=== PATIENT | male | born 2000 | race Caucasian/White ===

== ENCOUNTER 2022-07-16 07:19 | Emergency (ER) | payer OTHER ==
[~2022-07-16] VITALS: Ht 193 cm; Wt 124.7 kg
[2022-07-16 07:58] LABS: BASO % 0.5 % (0.0-1.0); EOS % 0.5 % (1.0-4.0); HEMATOCRIT 42.6 % (42.0-52.0); LYMPH % 26.7 % (27.0-41.0); MEAN CORPUSCULAR HGB CONC 36.2 g/dl (33.0-37.0); MEAN PLATELET VOLUME 9.9 fl (9.6-12.3); MONO # 0.6 10*3/uL (0.1-1.0); MONO % 7.6 % (3.0-9.0); NEUT # 4.9 10*3/uL (2.3-7.9); NEUT % 64.3 % (47.0-73.0); PLATELET COUNT AUTOMATED 244 10*3/uL (130-400); RED BLOOD COUNT 5.13 10*6/uL (4.50-5.90); RED CELL DISTRI WIDTH 13.4 % (0-14.5); WHITE BLOOD COUNT 7.6 10*3/uL (4.8-10.8)
[2022-07-16 08:12] LABS: ACT PARTIAL THROMBO TIME 26.8 SECONDS (20.0-32.1)
[2022-07-16 08:14] LABS: ALKALINE PHOSPHATASE 85 U/L (46-116); BUN 14 mg/dl (9-23); CHLORIDE 105 mmol/L (98-107); LIPASE 28 U/L (12-53); POTASSIUM 3.5 mmol/L (3.4-5.1); SGPT/ALT 22 U/L (10-49); TOTAL PROTEIN 7.5 gm/dL (6.0-8.0)
[2022-07-17] MEDS ORDERED: ATIVAN1 MG PO (18:48)
== END 2022-07-16 12:19 | disposition home or self-care (01) ==
LOC: ED 07:19 → EDBD 07:25 → ED 12:19
PROVIDERS: Emergency Medicine
DX: I47.1 Supraventricular tachycardia (principal); F17.200 Nicotine dependence, unspecified, uncomplicated

== ENCOUNTER 2022-07-17 15:06 | Emergency (ER) | payer OTHER ==
[2022-07-17 15:29] LABS: BASO % 0.5 % (0.0-1.0); EOS # 0.1 10*3/uL (0.0-0.4); EOS % 1.1 % (1.0-4.0); HEMATOCRIT 41.8 % (42.0-52.0); LYMPH # 1.7 10*3/uL (1.3-4.4); LYMPH % 29.9 % (27.0-41.0); MEAN CELL VOLUME 84.6 fl (80.0-94.0); MEAN CORPUSCULAR HGB 29.6 pg (27.0-31.0); MEAN CORPUSCULAR HGB CONC 34.9 g/dl (33.0-37.0); MEAN PLATELET VOLUME 9.5 fl (9.6-12.3); MONO # 0.4 10*3/uL (0.1-1.0); MONO % 7.7 % (3.0-9.0); NEUT # 3.4 10*3/uL (2.3-7.9); NEUT % 60.3 % (47.0-73.0); PLATELET COUNT AUTOMATED 219 10*3/uL (130-400); RED BLOOD COUNT 4.94 10*6/uL (4.50-5.90); RED CELL DISTRI WIDTH 13.4 % (0-14.5); WHITE BLOOD COUNT 5.7 10*3/uL (4.8-10.8)
[2022-07-17 15:42] LABS: ACT PARTIAL THROMBO TIME 29.7 SECONDS (20.0-32.1)
[2022-07-17 17:01] LABS: ALKALINE PHOSPHATASE 81 U/L (46-116); BUN 15 mg/dl (9-23); CHLORIDE 105 mmol/L (98-107); LIPASE 28 U/L (12-53); POTASSIUM 3.4 mmol/L (3.4-5.1); SGPT/ALT 18 U/L (10-49); TOTAL PROTEIN 7.5 gm/dL (6.0-8.0)
[2022-07-17] MEDS ORDERED: ATIVAN1 MG PO (18:48)
== END 2022-07-17 19:14 | disposition home or self-care (01) ==
LOC: ED 15:06
PROVIDERS: Emergency Medicine
DX: F41.0 Panic disorder [episodic paroxysmal anxiety] (principal)